=== PATIENT | female | born 1990 | race Caucasian/White ===

== ENCOUNTER 2016-12-03 16:40 | Emergency (ER) | payer OTHER ==
--- NOTE | ~2016-12-03 | US98 ---
[facility] A Service of [facility] RADIOLOGY TEXT RESULTS PATIENT: RAOUL SANTOS LOCATION: [facility] : 88 UNIT #: [id number] AGE: [address]: FERNANDO SALINAS APRN SEX: F ORDER DR: [id number] [facility] [address] [place], [place] [address] [id number] E MR#: [id number] Acc #: [id number] NAME: RAOUL SANTOS : 1990 SEX: F STUDY DATE/TIME: 12/03/2016 19:48 UNIT: [facility] ROOM: STUDY DESCRIPTION: US Pelvic Non-OB Complete Attending Physician: Fernando Salinas Aprn Ordering Physician: Ed Doctor [id number] [facility]AGING REPORT This report is preliminary unless electronic signature is present EXAM Transabdominal and transvaginal pelvic ultrasound, 12/03/16 HISTORY Pelvic pain and vaginal bleeding for 2 weeks with history of ovarian cysts FINDINGS Transaxial and transvaginal pelvic ultrasound was performed. Endovaginal ultrasound was performed for attempted better visualization of the adnexal structures. The bladder was normal in appearance. The uterus measures 5.8 cm craniocaudal x 2.9 cm AP x 3.3 cm transverse. The endometrial stripe measures 2 mm. The ovaries were not identified in either transabdominal or transvaginal portions of the examination. No adnexal mass was seen. There is no free fluid in the pelvis. IMPRESSION Exam is limited as the ovaries were not identified on either transabdominal or transvaginal portions of the examination. Otherwise, negative pelvic ultrasound. Dictated by... Akbar Perez M.D. THIS IS AN ELECTRONICALLY VERIFIED REPORT Akbar Perez M.D. at 12/04/2016 2:15 PM DANIELA/[email or web address] TD: 12/03/2016 22:57 JOB #: [id number] [facility] A Service of [facility] RADIOLOGY TEXT RESULTS PATIENT: RAOUL SANTOS LOCATION: [place] : 88 UNIT #: [id number] AGE: [address]: FERNANDO SALINAS APRN SEX: F ORDER DR: MEDICAL IMAGING REPORT Page 1 of 1 COPY
--- NOTE | ~2016-12-03 | CT4 ---
[facility] A Service of [facility] RADIOLOGY TEXT RESULTS PATIENT: RAOUL SANTOS LOCATION: [facility] : 88 UNIT #: [id number] AGE: [address]: FERNANDO SALINAS APRN SEX: F ORDER DR: [id number] [facility] [address] [place], [place] [address] [id number] E MR#: [id number] Acc #: [id number] NAME: RAOUL SANTOS : 1990 SEX: F STUDY DATE/TIME: 12/03/2016 22:31 UNIT: [id number] ROOM: STUDY DESCRIPTION: CT Abd and Pelv Wo Cont Attending Physician: Fernando Salinas Aprn Ordering Physician: Fernando Salinas Aprn MEDICAL IMAGING REPORT This report is preliminary unless electronic signature is present EXAM CT abdomen and pelvis without contrast DATE 12/03/2016 HISTORY 25-year-old female, abdominal pain and back pain and nausea for 3-[address]. [address] abdomen and pelvis with contrast 09/12/2014. Pelvic ultrasound 12/03/2016. PROCEDURE 5 mm noncontrast axial images through the abdomen and pelvis. Enteric contrast not administered. Sagittal and coronal reformatted images were obtained. This CT exam was performed with one or more of the following radiation dose reduction techniques: Automatic exposure control, adjustment of mA and/or kV according to patient size, and iterative reconstruction. FINDINGS ABDOMEN FINDINGS: Lung bases appear free of consolidation. Heart size is within normal limits. The liver, gallbladder, spleen, pancreas, gallbladder, adrenals and kidneys are within normal limits. The appendix is not visualized on this examination, but no pericecal inflammation is seen. Limited dilation of bowel due to lack of enteric contrast and the relative paucity of intraabdominal fat. PELVIS FINDINGS: Left adnexal cyst measures about 2.2 cm. Previously described right adnexal cyst has resolved. Uterus, urinary bladder and rectum are normal. Small bilateral pelvic phleboliths are incidentally [facility] A Service of [facility] RADIOLOGY TEXT RESULTS PATIENT: RAOUL SANTOS LOCATION: [facility] : 88 UNIT #: [id number] AGE: [address]: FERNANDO SALINAS APRN SEX: F ORDER DR: noted. No urinary tract stone or hydronephrosis is seen. No acute osseous abnormalities are identified. IMPRESSION 1. No acute findings in the abdomen or pelvis. 2. 2.2 cm left adnexal cyst. Previously described right adnexal cyst on the 09/12/2014 examination has resolved. 3. Appendix is not visualized but no pericecal inflammation is seen. Dictated by... Sierra Pastor M.D. THIS IS AN ELECTRONICALLY VERIFIED REPORT Sierra Pastor M.D. at 12/04/2016 10:07 PM Ji/unruly TD: 12/04/2016 02:20 JOB #: [id number] MEDICAL IMAGING REPORT Page 1 of 1 COPY
[2016-12-03 16:23] LABS: URINE SOURCE CLEAN CATCH
[2016-12-03 16:26] LABS: URINE APPEARANCE CLEAR; URINE BILIRUBIN NEG (NEG); URINE BLOOD NEG (NEG); URINE COLOR YELLOW; URINE GLUCOSE NEG (NEG); URINE KETONE 2+ (NEG); URINE LEUKOCYTE ESTERASE TRACE (NEG); URINE NITRATE NEG (NEG); URINE PH 7.5 (5-8); URINE PROTEIN TRACE (NEG); URINE SPECIFIC GRAVITY 1.026 (1.003-1.035)
[2016-12-03 16:29] LABS: URINE BACTERIA AUWI NEG (NEGATIVE); URINE SQUAMOUS EPITHELIAL CELL FEW /[HPF]; UWBCS1 AUWI 0-2 (0-5)
[2016-12-03 16:32] LABS: CULTURE INDICATED? NO
[~2016-12-03 16:40] MED LIST: AMOXICILLIN PO; MEDROL PO; NEXIUM PO; TRIAMCINOLONE A15 G3 EXT
[2016-12-03 16:50] LABS: BASOPHIL% 0.6 % (0-2.5); EOSINOPHIL% 0.6 % (0.0-7.0); HEMOGLOBIN 13.7 gm/dL (12.0-16.0); LYMPHOCYTE# 0.6 X10e3 (1.0-3.5); LYMPHOCYTE% 9.3 % (17.0-45.0); MEAN CELL VOLUME 99.5 FL (83-96); MEAN CORPUSCULAR HEMOGLOBIN 32.4 PG (28-34); MEAN CORPUSCULAR HGB CONC 32.6 g/dL (30-36); MEAN PLATELET VOLUME 9.1 FL (6.5-11.5); MONOCYTE# 0.5 X10e3 (0-1.0); MONOCYTE% 7.4 % (3.0-12.0); NEUTROPHIL# 5.7 X10e3 (1.5-7.1); NEUTROPHIL% 82.1 % (40-75); PLATELET COUNT 162 X10e3 (140-420); RED BLOOD COUNT 4.22 X10e (3.90-5.30); RED CELL DISTRIBUTION WIDTH 13.3 % (11.0-15.5); WHITE BLOOD COUNT 6.9 X10e3 (4.0-10.5)
[2016-12-03 16:53] LABS: DIFF IND NO
[2016-12-03 17:15] LABS: ALBUMIN SERUM 4.8 g/dL (3.5-5.0); BILIRUBIN,TOTAL 0.6 mg/dL (0.2-2.0); BUN/CREATININE RATIO 11.11; CALCIUM SERUM 8.8 mg/dL (8.4-10.2); CREATININE SERUM 0.9 mg/dL (0.6-1.4); GLOM FILT RATE Estimated 88.3 mL/min (>60); POTASSIUM 3.3 mmol/L (3.5-5.1); PROTEIN TOTAL SERUM 7.6 g/dL (6.0-8.3)
[2016-12-06 10:54] LABS: CHLAMYDIA TRACH Not Detected (Not Detected); N GONOR Not Detected (Not Detected)
== END 2016-12-03 23:28 | disposition home or self-care (01) ==
LOC: CFTX 16:40
PROVIDERS: Nurse Practitioner
DX: N83.202 Unspecified ovarian cyst, left side (principal); R10.32 Left lower quadrant pain; R10.2 Pelvic and perineal pain; J45.909 Unspecified asthma, uncomplicated; F17.210 Nicotine dependence, cigarettes, uncomplicated
CPT/HCPCS: 36415; 74176; 76830; 76856; 80053; 81003; 83690; 84703; 85025; 87491; 87591; 87808; 87905; 96372; 99284; J1885